=== PATIENT | female | born 1945 | race Caucasian/White ===

== ENCOUNTER 2023-01-10 17:27 | Emergency (ER) | payer OTHER, MEDICAID ==
[~2023-01-10] VITALS: Ht 175.3 cm; Wt 90.3 kg
[2023-01-10 18:23] VITALS: BP 126/74; PULSE 67; RESP 18; TEMP 98; O2SAT 98
[2023-01-10] MEDS ORDERED: ACET-10509 PO (22:33)
[2023-01-10 22:50] VITALS: BP 126/74; PULSE 67; RESP 18; TEMP 98; O2SAT 98
== END 2023-01-10 22:50 | disposition home or self-care (01) ==
LOC: MED 17:27
DX: S60.221A Contusion of right hand, initial encounter (principal); X58.XXXA Exposure to other specified factors, initial encounter; Y93.89 Activity, other specified; Y92.89 Other specified places as the place of occurrence of the external cause; Y99.8 Other external cause status
CPT/HCPCS: 73130; 99283